=== PATIENT | male | born 1960 | race Caucasian/White ===

== ENCOUNTER 2016-11-23 13:51 | Emergency (ER) | payer MEDICARE, MEDICAID ==
[~2016-11-23 13:51] MED LIST: ABILIFY15 MG PO; ABILIFY20 MG PO; AMBIEN10 M1 PO; AMBIEN10 MG PO; ANUSOL-HC30 GM RC; BACTRIM DS TABL1 TAB PO; BUPROBAN150 MG PO; CARBAMAZEPINE200 M4 PO; CYCLOBENZAPRINE5 M1 PO; CYMBALTA30 MG PO; CYMBALTA60 MG PO; CYTOMEL5 MCG PO; DIVALPROEX SOD500 M2 PO; ELIMITE60 G2 TP; FLEXERIL 10MG PO; FLUOXETINE HCL10 M1 PO; HIGH BLOOD PRESSURE; HYDROXYZINE HCL25 M1 PO; HYDROXYZINE HCL50 M1 PO; HYDROXYZINE HCL50 MG PO; IMITREX100 M2 PO; KEFLEX500 M4 PO; KLONOPIN0.5 MG/TAB PO; LAMICTAL25 M2 PO; LISINOPRIL20 MG PO; LITHOBID300 MG PO; NEURONTIN100 M1 PO; NORCO 5-325 TA1 EACH PO; NORCO 5/325 TAB1 TAB PO; OLANZAPINE15 MG PO; PREDNISONE10 M1 PO; PROAIR HFA8.5 GM INH; PROZAC20 M3 PO; SEROQUEL X200 MG/TAB PO; TEGRETOL200 MG PO; THYROID PILL; TRAZODONE100 MG PO; TYLENOL325 M1 PO; VITAMIN D35000 UNIT PO; VITAMIN D350000 UNIT PO; ZITHROMAX250 M1 PO
[2016-11-23] MEDS ORDERED: PENICILLIN V P500 M1 PO (17:23)
[2016-11-23] MEDS ORDERED: ULTRAM50 M1 PO (17:23)
== END 2016-11-23 17:35 ==
LOC: EDMED 13:51
DX: K08.89 Other specified disorders of teeth and supporting structures (principal); R51 Headache